=== PATIENT | female | born 1995 | race Caucasian/White ===

== ENCOUNTER 2022-06-10 11:37 | Emergency (ER) | payer BC, MEDICAID ==
[2022-06-10] MEDS ORDERED: Ibuprofen 800 MG Tab PO ONE (13:16)
[2022-06-10 14:04] LABS: ESTIMATED GFR 121 mL/min (>60)
[2022-06-10 15:09] LABS: CORONAVIRUS COVID-19 NAA NEGATIVE (NEGATIVE)
== END 2022-06-10 15:35 | disposition home or self-care (01) ==
LOC: FB.ED 11:37
DX: R53.83 Other fatigue (principal); N63.20 Unspecified lump in the left breast, unspecified quadrant; Z88.1 Allergy status to other antibiotic agents; Z20.822 Contact with and (suspected) exposure to COVID-19
CPT/HCPCS: 0241U; 36415; 80053; 84484; 85025; 86140; 99284; A9270-GY